=== PATIENT | female | born 1965 | race Caucasian/White ===

== ENCOUNTER 2017-05-30 06:23 | Emergency (ER) | payer OTHER ==
[~2017-05-30] VITALS: Ht 157.5 cm; Wt 145.2 kg
[2017-05-30 06:53] LABS: HEMATOCRIT 38.7 % (37.0-47.0); HEMOGLOBIN 12.5 gm/dL (12.0-15.0); MCH 28.2 pg (26.0-34.0); MCHC 32.5 g/dL (28.0-37.0); MCV 86.8 fL (80.0-100.0); RBC 4.45 mil/uL (4.20-5.00); RDW 14.7 % (10.5-14.5); WBC 13.7 thou/uL (4.0-11.0)
[2017-05-30 07:01] LABS: CALCIUM 8.7 mg/dL (8.5-10.1); CREATININE 1.1 mg/dL (0.6-1.0); POTASSIUM 3.9 mmol/L (3.5-5.1)
[2017-05-30 07:06] LABS: ALBUMIN 3.3 g/dL (3.4-5.0); TOTAL BILIRUBIN 0.4 mg/dL (<0.1-1.0); TOTAL PROTEIN 7.4 g/dL (6.4-8.2)
[2017-05-30 07:23] LABS: URINE BILIRUBIN NEGATIVE (Negative); URINE BLOOD NEGATIVE (Negative); URINE CLARITY CLOUDY; URINE COLOR YELLOW; URINE GLUCOSE-RANDOM* NEGATIVE (Negative); URINE KETONES NEGATIVE (Negative); URINE NITRITE-REFLEX NEGATIVE (Negative); URINE PROTEIN (DIPSTICK) NEGATIVE (Negative); URINE UROBILINOGEN 0.2 E.U./dl (0.2-1.0)
[2017-05-30 07:27] LABS: URINE LEUKOCYTES-REFLEX 1+ (Negative)
[2017-05-30 07:34] LABS: BACTERIA-REFLEX >30 Many /HPF (None Seen); CASTS None Seen /LPF (None Seen); CRYSTALS None Seen /LPF (None Seen); SQUAMOUS 0-3 Few /LPF (0-3); URINE RBC 0-2 Rare /HPF (0-2)
[2017-05-30] MEDS ORDERED: SENNA S TABLET1 EACH PO (07:48)
[2017-05-30] MEDS ORDERED: MIRALAX17 GM PO (07:48)
[2017-05-30] MEDS ORDERED: KEFLEX500 M1 PO (07:48)
[2017-05-30 08:50] VITALS: BP 141/46
== END 2017-05-30 10:01 | disposition home or self-care (01) ==
LOC: ER 06:23
PROVIDERS: Emergency Medicine
DX: N12 Tubulo-interstitial nephritis, not specified as acute or chronic (principal); M54.9 Dorsalgia, unspecified; E11.9 Type 2 diabetes mellitus without complications

== ENCOUNTER 2017-06-01 22:58 | Emergency (ER) | payer OTHER ==
[~2017-06-01] VITALS: Ht 157.5 cm; Wt 136.1 kg
--- NOTE | ~2017-06-01 | EKG ---
[address] [address] ELECTROCARDIOGRAM REPORT Name: SHARON BROWN Room #: [facility]#: [id number] Admission: 06/01/17 Attend Phys: Discharge: 06/02/17 Date of : 67 Report #: [id number] THIS REPORT FOR: //name// [facility] ED Test Date: 2017-06-01 Test Time: 23:24:33 Pat Name: SHARON BROWN Department: Room: Gender: F Marine Superintendent: MZOOK : 1965 Requested By: Shanta Combs Order Number: [id number] MD: Misael Bustos Measurements Intervals [place] Rate: 81 P: 87 HI: 169 QRS: 40 QRSD: 108 T: 45 QT: 366 QTc: 425 Interpretive Statements Sinus rhythm Incomplete left bundle branch block No previous ECG available for comparison Electronically Signed On 06-02-2017 8:17:58 STAVE [employer]OLT EQUALIZER by Misael Bustos [email or web address] <ELECTRONICALLY SIGNED> By: Misael Bustos MD 06/02/17 0817 2324 2324 MD INDRA Tucker
[~2017-06-01 22:58] MED LIST: KEFLEX500 M1 PO; MIRALAX17 GM PO; SENNA S TABLET1 EACH PO
[2017-06-01] MEDS ORDERED: PROBIOTIC1 EAC1 PO (23:17)
[2017-06-01] MEDS ORDERED: APAP650 PO (23:17)
[2017-06-01] MEDS ORDERED: LIPITOR80 MG PO (23:18)
[2017-06-01] MEDS ORDERED: CARVEDILOL3.125 MG PO (23:18)
[2017-06-01] MEDS ORDERED: ASPIR 8181 M1 PO (23:18)
[2017-06-01] MEDS ORDERED: KEFLEX500 M1 PO (23:19)
[2017-06-01] MEDS ORDERED: VITAMIN D2000 UNI1 PO (23:19)
[2017-06-01] MEDS ORDERED: IRON325 PO (23:20)
[2017-06-01] MEDS ORDERED: NEURONTIN 300300 M1 PO (23:20)
[2017-06-01] MEDS ORDERED: FLONASE 0.05%50 MCG NASAL (23:20)
[2017-06-01] MEDS ORDERED: HYDROCODON-ACE1 EAC7 PO (23:21)
[2017-06-01] MEDS ORDERED: HYDRALAZINE 2525 MG PO (23:21)
[2017-06-01] MEDS ORDERED: LANTUS100 UNIT/M SUBQ ×2 (23:22)
[2017-06-01 23:23] LABS: BASOPHILS 0.9 % (0.0-2.0); EOSINOPHILS 3.3 % (0.0-3.0); HEMATOCRIT 38.4 % (37.0-47.0); HEMOGLOBIN 12.2 gm/dL (12.0-15.0); LYMPHOCYTES 17.4 % (24.0-44.0); MCH 27.8 pg (26.0-34.0); MCHC 31.8 g/dL (28.0-37.0); MCV 87.3 fL (80.0-100.0); MONOCYTES 5.5 % (1.0-8.0); PLATELET COUNT 254 thou/uL (150-400); POLYS 72.9 % (36.0-66.0); RDW 15.1 % (10.5-14.5); WBC 13.7 thou/uL (4.0-11.0)
[2017-06-01] MEDS ORDERED: LASIX 40 MG TAB40 MG PO (23:23)
[2017-06-01] MEDS ORDERED: DEPO-PROVER150 MG/M1 IM (23:24)
[2017-06-01] MEDS ORDERED: METFORMIN HCL500 MG PO (23:24)
[2017-06-01 23:25] LABS: ANION GAP 11 mmol/L (7-16); BUN 37 mg/dL (7-18); CALCIUM 9.2 mg/dL (8.5-10.1); CHLORIDE 102 mmol/L (98-107); CO2 26 mmol/L (21-32); CREATININE 1.2 mg/dL (0.6-1.0); GLUCOSE 170 mg/dL (74-106); POTASSIUM 4.2 mmol/L (3.5-5.1); SODIUM 139 mmol/L (136-145)
[2017-06-01] MEDS ORDERED: MIRALAX17 G1 PO (23:25)
[2017-06-01] MEDS ORDERED: OXYBUTYNIN 5 MG5 M2 PO (23:26)
[2017-06-01] MEDS ORDERED: OMEPRAZOLE40 MG PO (23:26)
[2017-06-01] MEDS ORDERED: NOVOLOG100 UNIT/1 SUBQ (23:26)
[2017-06-01] MEDS ORDERED: SENNA8.6 MG PO (23:27)
[2017-06-01] MEDS ORDERED: ALDACTONE25 MG PO (23:27)
[2017-06-01] MEDS ORDERED: TRAMADOL 50 MG50 MG PO (23:27)
[2017-06-01] MEDS ORDERED: VENTOLIN HFA 1818 GM INH ×2 (23:27→23:28)
[2017-06-01 23:35] LABS: ALBUMIN 3.5 g/dL (3.4-5.0); DIRECT BILIRUBIN < 0.1 mg/dL (<0.1-0.3); LIPASE 110 U/L (73-393); SGOT 18 U/L (15-37); SGPT 23 U/L (30-65); TOTAL BILIRUBIN 0.3 mg/dL (<0.1-1.0); TOTAL PROTEIN 7.7 g/dL (6.4-8.2)
[2017-06-01 23:54] LABS: URINE BILIRUBIN NEGATIVE (Negative); URINE BLOOD NEGATIVE (Negative); URINE CLARITY CLEAR; URINE COLOR YELLOW; URINE GLUCOSE-RANDOM* NEGATIVE (Negative); URINE KETONES NEGATIVE (Negative); URINE LEUKOCYTES-REFLEX NEGATIVE (Negative); URINE NITRITE-REFLEX NEGATIVE (Negative); URINE PROTEIN (DIPSTICK) NEGATIVE (Negative); URINE SPECIFIC GRAVITY 1.015 (1.005-1.035); URINE UROBILINOGEN 0.2 E.U./dl (0.2-1.0)
[2017-06-02] MEDS ORDERED: BISACODYL SUPP10 MG RECTAL (01:26)
[2017-06-02 01:43] VITALS: BP 139/83
== END 2017-06-02 02:10 | disposition home or self-care (01) ==
LOC: ER 22:58
PROVIDERS: Emergency Medicine
DX: K59.00 Constipation, unspecified (principal); E11.9 Type 2 diabetes mellitus without complications; Z79.4 Long term (current) use of insulin

== ENCOUNTER 2017-06-07 22:10 | Emergency (ER) | payer OTHER ==
[~2017-06-07] VITALS: Ht 157.5 cm; Wt 158.8 kg
[~2017-06-07 22:10] MED LIST changes: +ALDACTONE25 MG PO; +APAP650 PO; +ASPIR 8181 M1 PO; +BISACODYL SUPP10 MG RECTAL; +CARVEDILOL3.125 MG PO; +DEPO-PROVER150 MG/M1 IM; +FLONASE 0.05%50 MCG NASAL; +HYDRALAZINE 2525 MG PO; +HYDROCODON-ACE1 EAC7 PO; +IRON325 PO; +LANTUS100 UNIT/M SUBQ; +LASIX 40 MG TAB40 MG PO; +LIPITOR80 MG PO; +METFORMIN HCL500 MG PO; +MIRALAX17 G1 PO; +NEURONTIN 300300 M1 PO; +NOVOLOG100 UNIT/1 SUBQ; +OMEPRAZOLE40 MG PO; +OXYBUTYNIN 5 MG5 M2 PO; +PROBIOTIC1 EAC1 PO; +SENNA8.6 MG PO; +TRAMADOL 50 MG50 MG PO; +VENTOLIN HFA 1818 GM INH; +VITAMIN D2000 UNI1 PO
[2017-06-07] MEDS ORDERED: VITAMIN D22000 UNIT PO (22:59)
[2017-06-07] MEDS ORDERED: IBUPROFEN 600600 M1 PO (23:00)
[2017-06-07] MEDS ORDERED: NIZORAL120 ML (23:01)
[2017-06-07] MEDS ORDERED: OMEPRAZOLE40 MG PO (23:03)
[2017-06-07] MEDS ORDERED: NOVOLOG100 UNIT/1 (23:38)
[2017-06-07] MEDS ORDERED: NYAMYC15 GM TOP (23:45)
[2017-06-07 23:47] LABS: ABSOLUTE NEUTROPHILS 13.7 thou/uL (1.4-8.2); BASOPHILS 0.8 % (0.0-2.0); HEMATOCRIT 38.8 % (37.0-47.0); HEMOGLOBIN 12.5 gm/dL (12.0-15.0); LYMPHOCYTES 16.4 % (24.0-44.0); MCHC 32.3 g/dL (28.0-37.0); MCV 86.6 fL (80.0-100.0); MONOCYTES 4.9 % (1.0-8.0); PLATELET COUNT 264 thou/uL (150-400); POLYS 74.9 % (36.0-66.0); RBC 4.48 mil/uL (4.20-5.00); RDW 15.6 % (10.5-14.5); WBC 18.3 thou/uL (4.0-11.0)
[2017-06-07 23:50] LABS: URINE BILIRUBIN NEGATIVE (Negative); URINE BLOOD NEGATIVE (Negative); URINE CLARITY CLEAR; URINE COLOR YELLOW; URINE GLUCOSE-RANDOM* NEGATIVE (Negative); URINE KETONES NEGATIVE (Negative); URINE LEUKOCYTES-REFLEX NEGATIVE (Negative); URINE NITRITE-REFLEX NEGATIVE (Negative); URINE PROTEIN (DIPSTICK) NEGATIVE (Negative); URINE SPECIFIC GRAVITY 1.015 (1.005-1.035); URINE UROBILINOGEN 0.2 E.U./dl (0.2-1.0)
[2017-06-07 23:55] LABS: CREATININE 1.3 mg/dL (0.6-1.0); POTASSIUM 4.5 mmol/L (3.5-5.1)
[2017-06-08 02:43] VITALS: BP 117/62
== END 2017-06-08 02:44 ==
LOC: ER 22:10
PROVIDERS: Emergency Medicine
DX: M54.5 Low back pain (principal); G89.29 Other chronic pain; B37.2 Candidiasis of skin and nail

== ENCOUNTER 2017-06-10 19:45 | Emergency (ER) | payer OTHER ==
[~2017-06-10] VITALS: Ht 157.5 cm; Wt 167.8 kg
[~2017-06-10 19:45] MED LIST changes: +IBUPROFEN 600600 M1 PO; +NIZORAL120 ML; +NOVOLOG100 UNIT/1; +NYAMYC15 GM TOP; +VITAMIN D22000 UNIT PO
[2017-06-10] MEDS ORDERED: SENNA PLUS TAB1 EACH PO (20:11)
[2017-06-10] MEDS ORDERED: NOVOLOG100 UNIT/1 SUBQ (20:12)
[2017-06-10 20:29] LABS: ABSOLUTE NEUTROPHILS 12.1 thou/uL (1.4-8.2); BASOPHILS 0.9 % (0.0-2.0); HEMATOCRIT 36.9 % (37.0-47.0); LYMPHOCYTES 16.2 % (24.0-44.0); MCHC 32.4 g/dL (28.0-37.0); MCV 86.6 fL (80.0-100.0); MONOCYTES 5.1 % (1.0-8.0); PLATELET COUNT 288 thou/uL (150-400); POLYS 74.8 % (36.0-66.0); RBC 4.27 mil/uL (4.20-5.00); RDW 15.4 % (10.5-14.5); WBC 16.2 thou/uL (4.0-11.0)
[2017-06-10 20:32] LABS: CALCIUM 9.4 mg/dL (8.5-10.1); CREATININE 1.2 mg/dL (0.6-1.0)
[2017-06-10 21:06] LABS: URINE BILIRUBIN NEGATIVE (Negative); URINE BLOOD NEGATIVE (Negative); URINE CLARITY CLEAR; URINE COLOR YELLOW; URINE GLUCOSE-RANDOM* NEGATIVE (Negative); URINE KETONES NEGATIVE (Negative); URINE LEUKOCYTES NEGATIVE (Negative); URINE NITRITE NEGATIVE (Negative); URINE PROTEIN (DIPSTICK) NEGATIVE (Negative); URINE UROBILINOGEN 0.2 E.U./dl (0.2-1.0)
[2017-06-10] MEDS ORDERED: LEVSIN0.125 MG PO (21:27)
[2017-06-10 21:58] VITALS: BP 175/71
== END 2017-06-10 22:47 | disposition home or self-care (01) ==
LOC: ER 19:45
PROVIDERS: Physician Assistant
DX: G89.29 Other chronic pain (principal); R10.31 Right lower quadrant pain; E11.22 Type 2 diabetes mellitus with diabetic chronic kidney disease; N18.9 Chronic kidney disease, unspecified; K21.9 Gastro-esophageal reflux disease without esophagitis; E11.40 Type 2 diabetes mellitus with diabetic neuropathy, unspecified; J44.9 Chronic obstructive pulmonary disease, unspecified; E78.5 Hyperlipidemia, unspecified; Z79.4 Long term (current) use of insulin

== ENCOUNTER 2017-06-17 21:53 | Inpatient (IN) | payer OTHER ==
[~2017-06-17] VITALS: Ht 157.5 cm; Wt 165.2 kg
--- NOTE | ~2017-06-17 | HC ---
[facility] [place] [address] CONSULTATION Name: SHARON BROWN Room #: 243-P ADM IN M.R.#: [id number] Admission: 06/17/17 Attend Phys: Anthony Lipscomb MD Discharge: Date of : 67 Report #: [id number] THIS REPORT FOR: //name// CC: Fred Lipscomb REASON FOR CONSULTATION: Elevated creatinine. REASON FOR PRESENTATION: The patient was transferred from her nursing facility with a concern of choking and aspiration. HISTORY OF PRESENT ILLNESS: A 51-year-old who was admitted on 06/17 from the Emergency Room. She is known to have multiple comorbid conditions including COPD, morbid obesity. She has presented to the Emergency Room numerous times in the last couple of weeks with numerous complaints. She is maintained on numerous narcotics. She was found by her nursing staff having shortness of breath after what seems to be an aspiration while eating hamburger. She was not able to provide me with the details of the events. On presentation, she was found to have an elevated creatinine with hypotension. While in the floor, demanding the need to be transferred to the Intensive Care Unit. She had a mildly elevated troponin on presentation. As of this morning, her creatinine is actually back to baseline of 1.2. Cardiac team wanted Nephrology consultation to evaluate and treat. PAST MEDICAL HISTORY: 1. Obesity. 2. Diabetes mellitus. 3. Chronic venous stasis changes. 4. Sleep apnea. 5. Hyperlipidemia. SOCIAL HISTORY: She resides in the nursing facility. No known drug or alcohol abuse. FAMILY HISTORY: Unobtainable given the patient's mental status. ALLERGIES: No known drug allergies. LISTED MEDICATIONS: From her nursing facility include the following. 1. Cephalexin. 2. Atorvastatin. 3. Hydralazine. 4. Carvedilol. 5. Spironolactone. 6. Lasix. 7. Insulin. [facility] [address] [place] [address] CONSULTATION Name: SHARON BROWN Room #: [facility]#: [id number] Admission: 06/17/17 Attend Phys: Anthony Lipscomb MD Discharge: Date of : 67 Report #: [id number] 8. Nystatin. REVIEW OF SYSTEMS: Unobtainable given the patient's mental status. PHYSICAL EXAMINATION: GENERAL: She is awake, but disoriented to time, place, and person. VITAL SIGNS: Blood pressure 100/52. HEAD AND NECK: No jugular venous distention. CHEST: Clear to auscultation. CARDIOVASCULAR: No rub. ABDOMEN: Soft, nontender. LOWER EXTREMITIES: Cellulitic changes noted. LABORATORY DATA: Laboratory values reviewed. White blood cell count 25.9. Blood gas this morning within normal range. Chemistry revealed a potassium of 2.7, BUN of 4 and a creatinine of 1.2, calcium was 5.5. Troponin was 10.1, albumin was 1.7. UA with +2 protein. Cultures are still pending. ASSESSMENT, IMPRESSION AND PLAN: 1. Acute kidney injury. 2. Hypokalemia. 3. Non-ST elevation myocardial infarction. 4. Hypotension. 5. Chronic obstructive pulmonary disease. 6. Chronic cellulitis. 7. Obesity hypoventilation. 8. The patient's acute kidney injury is related to hypotension. This has rectified. Continue to hold all of her blood pressure medication. 9. Septic workup. 10. IV fluids and pressors. 11. Avoid nephrotoxins. 12. Replace electrolytes. 13. Keep holding on off metformin for now. Available for any questions. We will sign off. <ELECTRONICALLY SIGNED> By: Tae Edgar MD 06/20/17 1703 0827 1111 Tae Edgar MD /nt
--- NOTE | ~2017-06-17 | 2DMMODE ---
[facility] [address] [place] [address] 2 D/M-MODE ECHOCARDIOGRAM Name: BROWN,SHARON L Room #: 243-P ADM IN .R.#: [id number] Admission: 06/17/17 Attend Phys: Anthony Lipscomb MD Discharge: Date of : 67 Date of Service: 06/18/17 1006 Report #: [id number] THIS REPORT FOR: //name// APPROVED REPORT Study performed: 06/18/2017 08:54:38 EXAM: Comprehensive 2D, Doppler, and color-flow Echocardiogram Patient Location: ICU Room #: 243 Status: routine BSA: 2.52 HR: 95 bpm BP: 89/46 mmHg Rhythm: NSR Other Information Study Quality: Fair Technically limited study due to morbid obesity, poor compliance, limited mobility. Indications Short of breath, HTN, COPD, obesity 2D Dimensions RVDd: 39.50 mm LVEF(%): 62.42 (>50%) IVSd: 11.25 (7-11mm) LVOT Diam: 19.57 (18-24mm) LVDd: 46.65 mm PWd: 10.96 (7-11mm) Ascending Ao: 26.82 (22-36mm) LVDs: 30.96 (25-40mm) Aortic Root: 28.06 mm Tavarez's LVEF: 62.42 % Volumes Left Atrial Volume (Systole) Single Plane 4CH: 52.08 mL Single Plane 2CH: 50.52 mL LA ESV Index: 22.00 mL/m2 Aortic Valve AoV Peak Carlos.: 1.82 m/s AO Peak Gr.: 13.32 mmHg LVOT Max P.90 mmHg LVOT Max V: 1.11 m/s ABDIRAHMAN Vmax: 1.82 cm2 Mitral Valve [facility] [place] [address] 2 D/M-MODE ECHOCARDIOGRAM Name: SHARON BROWN Room #: 243-P [facility] IN ..#: [id number] Admission: 06/17/17 Attend Phys: Anthony Lipscomb MD Discharge: Date of : 67 Date of Service: 06/18/17 1006 Report #: [id number] E/A Ratio: 1.2 MV Decel. Time: 219.89 ms MV E Max Carlos.: 1.23 m/s MV A Carlos.: 1.01 m/s MV PHT: 63.77 ms IVRT: 53.06 ms Pulmonary Valve PV Peak Carlos.: 1.11 m/s PV Peak Gr.: 4.94 mmHg Pulmonary Vein P Vein S: 0.85 m/s P Vein A: 0.35 m/s P Vein D: 0.64 m/s P Vein A Dur.: 107.3 msec P Vein S/D Ratio: 1.33 Tricuspid Valve TR Peak Carlos.: 3.41 m/s RAP Estimate: 15.00 mmHg TR Peak Gr.: 46.40 mmHg PA Pressure: 61.00 mmHg Left Ventricle The left ventricle is normal size. Regional wall motion is not well visualized but grossly normal. There is normal left ventricular wall thickness. Left ventricular systolic function is normal. LVEF is 55%. Right Ventricle Right ventricle is at the upper limits of normal. Right ventricle is mildly hypokinetic. Atria The left atrium size is normal. Right atrium is at the upper limits of normal. Aortic Valve The aortic valve is mildly sclerotic, trileaflet. No aortic regurgitation is present. There is no aortic valvular stenosis. Mitral Valve Mild mitral annular calcification. There is no mitral valve regurgitation noted. No evidence of mitral valve stenosis. Tricuspid Valve The tricuspid valve is normal in structure. Reguritant jet is not well visualized. Estimated PAP is 55mmHg. [place] [address] 2 D/M-MODE ECHOCARDIOGRAM Name: SHARON BROWN Room #: Replaced by [facility] IN [facility]#: [id number] Admission: 06/17/17 Attend Phys: Anthony Lipscomb MD Discharge: Date of : 67 Date of Service: 06/18/17 1006 Report #: [id number] Pulmonic Valve Pulmonic valve is not well visualized. There is no pulmonic valvular regurgitation noted. Great Vessels The aortic root is normal in size. The ascending aorta is normal in size. IVC is dilated and collapses <50% with inspiration. Pericardium There is no pericardial effusion. <Conclusion> Limited study Left ventricular systolic function is normal. Regional wall motion is not well visualized but grossly normal. LVEF is 55%. The aortic valve is mildly sclerotic, trileaflet. No aortic regurgitation or stenosis Mild mitral annular calcification. No mitral valve regurgitation noted. Reguritant jet is not well visualized. Estimated pulmonary artery pressure of 55mmHg. There is no pericardial effusion. <ELECTRONICALLY SIGNED> By: Tang Oseguera MD, FACC 06/18/17 1006 1006 1006 Tang Oseguera MD, FACC /INF
--- NOTE | ~2017-06-17 | HC ---
[facility] [place] [address] CONSULTATION Name: SHARON BROWN Room #: 422-P ADM IN M.R.#: [id number] Admission: 06/17/17 Attend Phys: Anthony Lipscomb MD Discharge: Date of : 67 Report #: [id number] THIS REPORT FOR: //name// CC: Fred Lipscomb INFECTIOUS DISEASES CONSULTATION REASON FOR CONSULTATION: I was asked to evaluate concerning septic shock. HISTORY OF PRESENT ILLNESS: The patient is a 51-year-old resides in retirement due to morbid obesity, COPD and inability for her to care for herself. She has been in the Emergency Room 6 times in the last 2 weeks with abdominal pain and back pain. Describes intermittent, sharp low back pain with right-sided flank pain. She has a large ventral hernia. She has been seen by Dr. Lipscomb who has attempted to do a complete workup on her including MRI scan of her back, surgical consultation, but due to multiple factors, this has not happened. She has been on some narcotics for her pain. Yesterday developed acute worsening with shortness of breath. Apparently aspirated on a hamburger. The patient was unable to give much further detail. She does state she has had no significant cough or sputum production. No pleuritic chest pain. No fever, chills or sweats. When she presented to the Emergency Room, she developed hypotension, spent a short period of time on the floor and now is in the intensive care unit. IV fluids and vasopressors in place. She has had low urine output. She developed elevation in her troponin consistent with a non-STEMI. She has been seen by Cardiology and Pulmonary Medicine. In her previous evaluation, she had a Klebsiella cystitis and was treated with cephalexin. ALLERGIES: None known. MEDICATIONS: As noted on her JUL, having been given vancomycin, Levaquin and Unasyn in the Emergency Room. Now on Levophed drip. PAST MEDICAL HISTORY: Diabetes, obesity, gastroesophageal reflux, obstructive sleep apnea, hyperlipidemia, COPD, peripheral neuropathy, lower extremity edema, and acute renal failure. FAMILY HISTORY: Noncontributory. SOCIAL HISTORY: Resides in retirement. Nonsmoker, no significant alcohol intake. REVIEW OF SYSTEMS: Negative than what has been described above. She has had no rashes or decubiti. No dysuria. She states that she has had no vomiting or diarrhea. She also denies any constipation, although in her previous Emergency Room visits that seems to be an issue. [facility] [address] [place] [address] CONSULTATION Name: SHARON BROWN Room #: 422-P [facility]#: [id number] Admission: 06/17/17 Attend Phys: Anthony Lipscomb MD Discharge: Date of : 67 Report #: [id number] PHYSICAL EXAMINATION: VITAL SIGNS: She has a temperature of 103.2 degrees on admission, now afebrile, blood pressure 89/46 on Levophed drip. GENERAL: She was alert and cooperative. She is on 2 liters of oxygen per nasal cannula. She was morbidly obese. HEENT: Otherwise, unremarkable and she was edentulous. NECK: Supple, no adenopathy. SKIN: She had some mild venous stasis dermatitis changes right lower extremity. LUNGS: Coarse bilaterally. No consolidation. HEART: Regular, without appreciable murmur. ABDOMEN: Obese. She had a large ventral hernia, which was not specifically tender. No other masses identified. Indwelling Faye catheter. Peripheral IV in place. NEUROLOGIC: Nonfocal. It is very difficult to examine as the patient is of large size. Her weight was 386 pounds. LABORATORY STUDIES: Echocardiogram shows normal systolic function. It was a limited study. EF of 55%, did not get a good look at her right side. Pulmonary artery pressure was about 55 mmHg. Chest x-ray, bilateral pulmonary infiltrates with associated atelectasis versus infiltrate in the bases, predominantly medial. Sodium 140, potassium 3.6, bicarbonate 23, creatinine 2, her baseline is 1.1. Liver function test normal. Troponin 8, hemoglobin 10, platelet count 179,000; white count 25.9 with 18% bands, 2% metamyelocytes. Procalcitonin is 109 with a lactate of 2. Urinalysis, many wbc's, rbc's and bacteria. Urine culture from 05/30/2017 showed sensitive Klebsiella. From yesterday, urine culture showing gram-negative bacilli. Blood cultures are pending. Sputum is yet to be collected. CT of the head was negative. I reviewed a CT scan of her abdomen from 06/08/2017 showed some constipation, large ventral abdominal wall hernia with transverse colon and the segment. Interstitial changes in the lung. IMPRESSION: A 51-year-old with underlying chronic obstructive pulmonary disease likely is pulmonary hypertension with marked obesity, now with non-ST elevation myocardial infarction in the setting of septic shock with leukocytosis, fever. I am suspecting urinary tract source with associated aspiration pneumonitis. She does have ongoing history of back pain with right abdominal and flank pain. This may be of urinary tract source, although she had no evidence of obstruction on her CT scan with no nephrolithiasis. Other consideration would be atypical presentation from her ventral hernia. Lumbar disk disease, given her weight would also be a contributing factor to her pain, although she has had no radicular features described. RECOMMENDATION: We will continue broad antibiotic coverage, pending cultures of [facility] [address] [place] [address] CONSULTATION Name: SHARON BROWN Room #: 422-P ADM IN M.R.#: [id number] Admission: 06/17/17 Attend Phys: Anthony Lipscomb MD Discharge: Date of : 67 Report #: [id number] urine, blood and sputum. Would have General Surgery evaluate her large ventral hernia. When stable, would consider further imaging of her lumbar spine. <ELECTRONICALLY SIGNED> By: Fred Price MD 06/21/17 0959 1032 2244 Fred Price MD /nt
--- NOTE | ~2017-06-17 | EKG ---
[address] [address] ELECTROCARDIOGRAM REPORT Name: BROWNSHARON ENGLISH Room #: 243- ADM IN M.R.#: [id number] Admission: 06/17/17 Attend Phys: Anthony Lipscomb MD Discharge: Date of : 67 Report #: [id number] THIS REPORT FOR: //name// [facility] Test Date: 2017-06-18 Test Time: 03:33:31 Pat Name: SHARON BROWN Department: Room: 243 Gender: F Truck Packer: ADOLPH : 1965 Requested By: Anthony Lipscomb Order Number: [id number] MD: Tang Oseguera Measurements Intervals [place] Rate: 104 P: 55 [place]: 147 QRS: 72 QRSD: 99 T: 46 QT: 341 QTc: 449 Interpretive Statements Sinus tachycardia Nonspecific ST segment abnormality Compared to ECG 06/01/2017 23:24:33 No significant change was found Electronically Signed On 06-18-2017 9:06:26 [facility] by Tang Oseguera [email or web address] <ELECTRONICALLY SIGNED> By: Tang Oseguera MD, [facility] 06/18/17 0906 2 2 Tang Oseguera MD, [facility] /EPI
--- NOTE | ~2017-06-17 | EKG ---
[address] [place] [address] ELECTROCARDIOGRAM REPORT Name: BROWNSHARON ENGLISH Room #: 243-P ADM IN M.R.#: [id number] Admission: 06/17/17 Attend Phys: Anthony Lipscomb MD Discharge: Date of : 67 Report #: [id number] THIS REPORT FOR: //name// [facility] ED Test Date: 2017-06-17 Test Time: 23:22:11 Pat Name: SHARON BROWN Department: Room: [facility] Gender: F Power System Engineer: NICK : 1965 Requested By: Keron Yadav Order Number: [id number] MD: Tang Oseguera Measurements Intervals [place] Rate: 122 P: 62 OR: 161 QRS: 64 QRSD: 98 T: -19 QT: 319 QTc: 455 Interpretive Statements Sinus tachycardia Low voltage, precordial leads Borderline repolarization abnormality Compared to ECG 06/01/2017 23:24:33 No significant change was found Electronically Signed On 06-18-2017 9:03:45 LITHOGRAPHIC PHOTOGRAPHER by Tang Oseguera [email or web address] <ELECTRONICALLY SIGNED> By: Tang Oseguera MD, [facility] 06/18/17902 21 21 Tang Oseguera MD, [facility] /EPI
--- NOTE | ~2017-06-17 | CATHLAB ---
[facility] [place] [address] INVASIVE PROCEDURE REPORT Name: SHARON BROWN Chandni Room #: 208-P [facility] IN ..#: [id number] Admission: 06/17/17 Attend Phys: Anthony Lipscomb MD Discharge: Date of : 67 Date of Service: 06/22/17 [facility] Report #: [id number] THIS REPORT FOR: //name// APPROVED REPORT Patient Details Patient Status: In-Patient Room #: The patient is a 51 year-old female Event Personnel Sameer Wills Computer Processing Scheduler, Jose Ortiz RN, Bettina Bowman RN RN, Candy Fernandez Partnoy, Nancy RTR, DIE OPERATOR Monitor Procedures Performed Art Access - R radial artery Left Heart Cath w/or w/o Coronaries [id number] [facility] [address] Initial Mod Sed Same Phys/QHP Gr5y [id number] Hemostasis with Hemoband Indication CHF Current Status: , Non-STEMI , Dyspnea Risk Factors Obesity, HypercholesterolemiaPhysical Activity, Hypertension, Diabetes Procedure Narrative The Right Wrist^ was infiltrated with 1% Lidocaine subcutaneous anesthesia. A TRANSRADIAL SLENDER 6F GLIDESHEATH KIT #[id number] sheath was inserted into the Right Radial Artery^. Coronary angiography was performed using coronary diagnostic catheters. The right coronary system was accessed and visualized with a 5FR JR 4 #[id number] catheter. The left coronary system was accessed and visualized with a 5FR JL 3.5 #[id number] catheter. The left ventricle was accessed and visualized with a 5FR PIG 145 ANGLED #[id number] catheter. Left ventricular/Aortic Valve gradient assessed via catheter pullback. Left ventriculogram was performed in 30 degree projection. Closure device was deployed with a Fr VASC BAND XL 29CM #[id number]. The patient tolerated the procedure well and there were no complications associated with the procedure. There was no hematoma. Intraoperative Conscious Sedation Sedation start time: 09:15 Case end Time: 09:34 Fentanyl --25 mcg Versed 1.[address] [address] INVASIVE PROCEDURE REPORT Name: SHARON BROWN Room #: 208-P [facility]#: [id number] Admission: 06/17/17 Attend Phys: Anthony Lipscomb MD Discharge: Date of : 67 Date of Service: 06/22/17 1257 Report #: [id number] Fluoro Time: 3.10 minutes Dose: DAP 21283.59 cGycm2 1131 mGy Contrast Type and Amount: Visipaque 120 ml Coronary Angiography The patient's coronary anatomy is right dominant. Diagnostic Cath Left Main Patent vessel, with no flow-limiting lesions. LAD Moderate size caliber vessel in the proximal segment, tapers down to a small size caliber vessel in the mid and distal segments. There is moderate diffuse disease within the mid segment of the LAD, 40-50%. Diagonal 1 Small-caliber vessel, with mild disease proximally. Diagonal 2 Small-caliber vessel, with mild diffuse disease in the midsegment. Circumflex Patent vessel, with no flow-limiting lesions. OM1 Small-caliber vessel, with mild disease proximally. OM2 Moderate size caliber vessel, patent with no flow-limiting lesions. 80%. Right Coronary Dominant vessel, with no flow-limiting lesions. R PDA Patent vessel, with mild disease proximally. Left Ventriculography The left ventricle is normal in size with normal contractility. The left ventricular ejection fraction is estimated to be 65%. Hemodynamics The aortic pressure is 125/77 mmHg with a mean of 96 mmHg. The left ventricular pressure is 143/17 mmHg with a mean of mmHg. The left ventricular end diastolic pressure is 35 mmHg. Conclusion 1. Mild to moderate, nonobstructive CAD. 2. Hyperdynamic LV systolic function. 3. Recommend medical therapy. <ELECTRONICALLY SIGNED> By: Sameer Wills MD 06/22/17 1257 1257 1257 Sameer Wills MD /INF
--- NOTE | ~2017-06-17 | EKG ---
[address] [place] [address] ELECTROCARDIOGRAM REPORT Name: SHARON BROWN Room #: 243-P ADM IN M.R.#: [id number] Admission: 06/17/17 Attend Phys: Anthony Lipscomb MD Discharge: Date of : 67 Report #: [id number] THIS REPORT FOR: //name// [facility] ED Test Date: 2017-06-17 Test Time: 22:34:18 Pat Name: SHARON BROWN Department: Room: [facility] Gender: F Dentures Lab Technician: NICK : 1965 Requested By: Keron Yadav Order Number: [id number] MD: Tang Oseguera Measurements Intervals [place] Rate: 125 P: 71 [place]: 150 QRS: 53 QRSD: 92 T: -37 QT: 279 QTc: 403 Interpretive Statements Sinus tachycardia Borderline repolarization abnormality Artifact in lead(s) II,III,aVR,aVF,V4,V5 Compared to ECG 06/01/2017 23:24:33 Heart rate is increased Electronically Signed On 06-18-2017 9:03:28 PAY STATION DEPARTMENT MANAGER by Tang Oseguera [email or web address] <ELECTRONICALLY SIGNED> By: Tang Oseguera MD, FACC 06/18/17 0903 2234 2234 Tang Oseguera MD, [facility] /EPI
[~2017-06-17 21:53] MED LIST changes: +LEVSIN0.125 MG PO; +SENNA PLUS TAB1 EACH PO
[2017-06-17 22:02] VITALS: BP 116/60
[2017-06-17 22:08] LABS: BE(vivo) -6.2 mmol/L (-2 to +3); HCO3 17.9 mmol/L (22.0-26.0); PCO2 31.6 mmHg (35.0-45.0); PO2 62.4 mmHg (80.0-100.0); pH 7.372 (7.360-7.450); sO2 91.7 % (92.0-98.0)
[2017-06-17 22:15] LABS: ABSOLUTE NEUTROPHILS 7.2 thou/uL (1.4-8.2); BASOPHILS 0.6 % (0.0-2.0); HEMATOCRIT 38.3 % (37.0-47.0); HEMOGLOBIN 12.5 gm/dL (12.0-15.0); LYMPHOCYTES 11.8 % (24.0-44.0); MCH 28.5 pg (26.0-34.0); MCHC 32.7 g/dL (28.0-37.0); MCV 87.2 fL (80.0-100.0); MONOCYTES 0.7 % (1.0-8.0); PLATELET COUNT 237 thou/uL (150-400); POLYS 85.9 % (36.0-66.0); RBC 4.39 mil/uL (4.20-5.00); RDW 15.7 % (10.5-14.5); WBC 8.4 thou/uL (4.0-11.0)
[2017-06-17 22:26] LABS: URINE BILIRUBIN NEGATIVE (Negative); URINE BLOOD 3+ (Negative); URINE CLARITY CLOUDY; URINE COLOR YELLOW; URINE GLUCOSE-RANDOM* NEGATIVE (Negative); URINE KETONES NEGATIVE (Negative); URINE LEUKOCYTES-REFLEX 3+ (Negative); URINE NITRITE-REFLEX POSITIVE (Negative); URINE PROTEIN (DIPSTICK) 2+ (Negative); URINE UROBILINOGEN 0.2 E.U./dl (0.2-1.0)
[2017-06-17 22:32] LABS: BACTERIA-REFLEX >30 Many /HPF (None Seen); SQUAMOUS 0-3 Few /LPF (0-3); URINE RBC >20 Many /HPF (0-2); URINE WBC-REFLEX >25 Many /HPF (0-5)
[2017-06-17 22:33] LABS: CASTS None Seen /LPF (None Seen); CRYSTALS None Seen /LPF (None Seen)
[2017-06-17 22:48] LABS: CALCIUM 8.9 mg/dL (8.5-10.1); CREATININE 1.7 mg/dL (0.6-1.0); POTASSIUM 4.3 mmol/L (3.5-5.1)
[2017-06-17 22:54] LABS: ALBUMIN 3.2 g/dL (3.4-5.0); TOTAL BILIRUBIN 0.5 mg/dL (<0.1-1.0); TOTAL PROTEIN 7.3 g/dL (6.4-8.2)
[2017-06-17 23:47] VITALS: BP 100/52
[2017-06-17 23:58] VITALS: BP 103/72
[2017-06-18] VITALS (29 sets, daily range): BP systolic 72–121; BP diastolic 38–77
[2017-06-18 04:09] LABS: APTT 30.3 Seconds (24.5-32.8); INR 1.2; PROTIME 11.9 Seconds (9.3-11.4)
[2017-06-18 04:35] LABS: HEMATOCRIT 31.1 % (37.0-47.0); MCHC 32.1 g/dL (28.0-37.0); MCV 87.2 fL (80.0-100.0); PLATELET COUNT 179 thou/uL (150-400); RBC 3.57 mil/uL (4.20-5.00); RDW 15.4 % (10.5-14.5)
[2017-06-18 04:38] LABS: CALCIUM 7.3 mg/dL (8.5-10.1); CREATININE 2.1 mg/dL (0.6-1.0)
[2017-06-18 05:19] LABS: POTASSIUM 3.1 mmol/L (3.5-5.1)
[2017-06-18 05:30] LABS: WBC 25.9 thou/uL (4.0-11.0)
[2017-06-18 05:58] LABS: BE(vivo) -2.1 mmol/L (-2 to +3); HCO3 21.7 mmol/L (22.0-26.0); PCO2 33.8 mmHg (35.0-45.0); PO2 73.1 mmHg (80.0-100.0); pH 7.425 (7.360-7.450); sO2 95.2 % (92.0-98.0)
[2017-06-18 06:53] LABS: CALCIUM 7.7 mg/dL (8.5-10.1); CREATININE 2.1 mg/dL (0.6-1.0); POTASSIUM 3.2 mmol/L (3.5-5.1)
[2017-06-18 07:00] LABS: ALBUMIN 2.3 g/dL (3.4-5.0); MAGNESIUM 1.7 mg/dL (1.8-2.4); TOTAL BILIRUBIN 0.4 mg/dL (<0.1-1.0)
[2017-06-18 07:40] LABS: CALCIUM 7.7 mg/dL (8.5-10.1); POTASSIUM 3.6 mmol/L (3.5-5.1)
[2017-06-18 07:52] LABS: TROPONIN-I 8.09 ng/mL (<0.06)
[2017-06-18 08:00] LABS: ABSOLUTE NEUTROPHILS 22.8 thou/uL (1.4-8.2); ANISOCYTOSIS SLIGHT; METAMYELOCYTES 2 %
[2017-06-18 08:45] LABS: CHOLESTEROL 91 mg/dL (<200); HDL CHOLESTEROL 31 mg/dL (>40); LDL CHOLESTEROL 41 mg/dL (<100); TC:HDL 2.9 Ratio (Not establshd); TRIGLYCERIDE 97 mg/dL (<150); VLDL 19 mg/dL (<40)
[2017-06-18 08:47] LABS: SERUM ASSESSMENT Clear
[2017-06-18 12:25] LABS: CALCIUM 7.9 mg/dL (8.5-10.1); CREATININE 1.9 mg/dL (0.6-1.0); POTASSIUM 3.6 mmol/L (3.5-5.1)
[2017-06-18 16:37] LABS: CALCIUM 7.4 mg/dL (8.5-10.1); POTASSIUM 3.3 mmol/L (3.5-5.1)
[2017-06-19] VITALS (28 sets, daily range): BP systolic 83–164; BP diastolic 44–124
[2017-06-19 04:26] LABS: HEMATOCRIT 31.2 % (37.0-47.0); MCH 27.9 pg (26.0-34.0); MCHC 32.2 g/dL (28.0-37.0); MCV 86.5 fL (80.0-100.0); PLATELET COUNT 167 thou/uL (150-400); RDW 15.6 % (10.5-14.5); WBC 24.9 thou/uL (4.0-11.0)
[2017-06-19 04:39] LABS: ALBUMIN 1.7 g/dL (3.4-5.0); CREATININE 1.2 mg/dL (0.6-1.0); TOTAL BILIRUBIN 0.3 mg/dL (<0.1-1.0)
[2017-06-19 04:44] LABS: POTASSIUM 2.7 mmol/L (3.5-5.1)
[2017-06-19 04:45] LABS: CALCIUM 5.5 mg/dL (8.5-10.1)
[2017-06-19 05:11] LABS: BE(vivo) -1.8 mmol/L (-2 to +3); HCO3 23.3 mmol/L (22.0-26.0); PO2 86.6 mmHg (80.0-100.0); pH 7.373 (7.360-7.450); sO2 96.4 % (92.0-98.0)
[2017-06-19 05:44] LABS: ABSOLUTE NEUTROPHILS 21.4 thou/uL (1.4-8.2)
[2017-06-20] VITALS (16 sets, daily range): BP systolic 83–123; BP diastolic 48–76
[2017-06-20 04:48] LABS: ABSOLUTE NEUTROPHILS 12.2 thou/uL (1.4-8.2); BASOPHILS 0.4 % (0.0-2.0); EOSINOPHILS 3.7 % (0.0-3.0); HEMATOCRIT 27.8 % (37.0-47.0); LYMPHOCYTES 12.4 % (24.0-44.0); MCH 28.2 pg (26.0-34.0); MCHC 32.3 g/dL (28.0-37.0); MCV 87.3 fL (80.0-100.0); MONOCYTES 4.6 % (1.0-8.0); PLATELET COUNT 144 thou/uL (150-400); POLYS 78.9 % (36.0-66.0); RBC 3.18 mil/uL (4.20-5.00); RDW 16.1 % (10.5-14.5); WBC 15.4 thou/uL (4.0-11.0)
[2017-06-20 04:57] LABS: CREATININE 1.4 mg/dL (0.6-1.0); POTASSIUM 4.8 mmol/L (3.5-5.1)
[2017-06-20 05:01] LABS: CALCIUM 7.8 mg/dL (8.5-10.1)
[2017-06-21 03:55] VITALS: BP 117/68
[2017-06-21 06:50] LABS: CALCIUM 8.5 mg/dL (8.5-10.1); CREATININE 1.2 mg/dL (0.6-1.0); POTASSIUM 4.9 mmol/L (3.5-5.1)
[2017-06-21 07:45] VITALS: BP 117/56; BP 176/56
[2017-06-21 15:40] VITALS: BP 134/54
[2017-06-21 19:13] VITALS: BP 142/56
[2017-06-22 02:09] LABS: ADENOVIRUS Negative (Negative); INFLUENZA A Negative (Negative); INFLUENZA B Negative (Negative); METAPNEUMOVIRUS Negative (Negative); PARAINFLUENZA 1 Negative (Negative); PARAINFLUENZA 2 Negative (Negative); PARAINFLUENZA 3 Negative (Negative); RHINOVIRUS Negative (Negative); RSV A Negative (Negative); RSV B Negative (Negative)
[2017-06-22 03:34] VITALS: BP 131/59
[2017-06-22 07:17] LABS: CREATININE 1.1 mg/dL (0.6-1.0); POTASSIUM 4.4 mmol/L (3.5-5.1)
[2017-06-22 08:29] VITALS: BP 146/68
[2017-06-22 10:35] VITALS: BP 117/60
[2017-06-22 15:35] VITALS: BP 136/73
[2017-06-22 19:50] VITALS: BP 144/57
[2017-06-23 00:12] VITALS: BP 144/51
[2017-06-23 04:29] VITALS: BP 128/54
[2017-06-23 04:33] LABS: HEMATOCRIT 31.6 % (37.0-47.0); HEMOGLOBIN 10.2 gm/dL (12.0-15.0); MCH 27.8 pg (26.0-34.0); MCHC 32.4 g/dL (28.0-37.0); MCV 85.8 fL (80.0-100.0); RBC 3.68 mil/uL (4.20-5.00); RDW 15.3 % (10.5-14.5); WBC 12.6 thou/uL (4.0-11.0)
[2017-06-23 04:43] LABS: CALCIUM 8.5 mg/dL (8.5-10.1); CREATININE 1.1 mg/dL (0.6-1.0); POTASSIUM 4.3 mmol/L (3.5-5.1)
[2017-06-23 07:49] VITALS: BP 133/60
[2017-06-23 11:11] VITALS: BP 115/59
[2017-06-23 15:44] VITALS: BP 121/45
[2017-06-23 20:13] VITALS: BP 110/41
[2017-06-24 04:46] VITALS: BP 114/40
[2017-06-24 05:07] LABS: CALCIUM 8.7 mg/dL (8.5-10.1); POTASSIUM 4.4 mmol/L (3.5-5.1)
[2017-06-24 07:45] VITALS: BP 138/66
[2017-06-24] MEDS ORDERED: CEFDINIR300 MG PO (11:27)
[2017-06-24] MEDS ORDERED: CLOPIDOGREL75 MG PO (11:29)
[2017-06-24] MEDS ORDERED: TOPROL XL100 MG PO (11:30)
[2017-06-24] MEDS ORDERED: PERCOCET PO (11:31)
[2017-06-24 11:35] VITALS: BP 130/62
[2017-06-24 15:33] VITALS: BP 140/64
== END 2017-06-24 19:00 | DRG 871 ==
LOC: ER 21:53 → ICU 23:32 → EROBS 23:32 → 3W 06-18 00:06 → ICU 06-18 03:31 → 4E 06-20 18:13 → 2N 06-22 10:35
PROVIDERS: Internal Medicine; Internal Medicine Cardiovascular Disease; Internal Medicine Pulmonary Disease; Physician Assistant; Specialist
PROC: B2111ZZ Fluoroscopy of Multiple Coronary Arteries using Low Osmolar Contrast (ICD-10-PCS; principal; 2017-06-22)
PROC: 4A023N7 Measurement of Cardiac Sampling and Pressure, Left Heart, Percutaneous Approach (ICD-10-PCS; principal; 2017-06-22)
PROC: B2151ZZ Fluoroscopy of Left Heart using Low Osmolar Contrast (ICD-10-PCS; principal; 2017-06-22)
PROC: 05HB33Z Insertion of Infusion Device into Right Basilic Vein, Percutaneous Approach (ICD-10-PCS; principal; 2017-06-22)
DX: A41.9 Sepsis, unspecified organism (principal); I21.4 Non-ST elevation (NSTEMI) myocardial infarction; J69.0 Pneumonitis due to inhalation of food and vomit; Z68.44 Body mass index [BMI] 60.0-69.9, adult; N17.9 Acute kidney failure, unspecified; L03.90 Cellulitis, unspecified; N12 Tubulo-interstitial nephritis, not specified as acute or chronic; I50.30 Unspecified diastolic (congestive) heart failure; K21.9 Gastro-esophageal reflux disease without esophagitis; G47.33 Obstructive sleep apnea (adult) (pediatric); E78.5 Hyperlipidemia, unspecified; E11.40 Type 2 diabetes mellitus with diabetic neuropathy, unspecified; N18.9 Chronic kidney disease, unspecified; R65.20 Severe sepsis without septic shock; E11.22 Type 2 diabetes mellitus with diabetic chronic kidney disease; E11.42 Type 2 diabetes mellitus with diabetic polyneuropathy; E87.6 Hypokalemia; E66.01 Morbid (severe) obesity due to excess calories; K43.9 Ventral hernia without obstruction or gangrene; G89.29 Other chronic pain; I27.20 Pulmonary hypertension, unspecified; E83.51 Hypocalcemia; B96.20 Unspecified Escherichia coli [E. coli] as the cause of diseases classified elsewhere; I25.10 Atherosclerotic heart disease of native coronary artery without angina pectoris; Z79.899 Other long term (current) drug therapy; Z87.891 Personal history of nicotine dependence
CPT/HCPCS: 10078; 10783; 10797; 27000